=== PATIENT | female | born 1980 | race Caucasian/White ===

== ENCOUNTER 2019-01-14 23:27 | Emergency (ER) | payer OTHER ==
[2019-01-14 23:57] LABS: ABS Basophils 0.1 10^3/ul (0-0.2); ABS Eosinophils 0.3 10^3/ul (0-0.6); ABS Lymphocytes 2.2 10^3/ul (1.0-4.8); ABS Monocytes 0.9 10^3/ul (0-0.8); ABS Neutrophils 8.3 10^3/ul (1.5-7.7); Eosinophil % 2.3 %; Hematocrit 40 % (35-47); Hemoglobin 13.4 g/dL (12.0-16.0); Lymphocyte % 19.1 %; Mean Corpuscular HGB Conc 34 g/dL (31-36); Mean Corpuscular Hemoglobin 28 pg (27-31); Mean Corpuscular Volume 83 fL (80-97); Mean Platelet Volume 6.8 fL (7.4-10.4); Platelet Count 276 10^3/uL (150-450); Red Blood Count 4.74 10^6 /uL (3.70-4.87); Red Cell Distribution Width 13 % (10-15); White Blood Count 11.8 10^3/uL (3.5-10.8)
[2019-01-15 00:06] LABS: Activated Partial Thrombo Time 32.8 seconds (26.0-38.0); INR 1.08 (0.82-1.09)
[2019-01-15 00:25] LABS: Albumin/Globulin Ratio 1.5 (1-3); BUN/Creatinine Ratio 20.3 (8-20); Calcium 9.4 mg/dL (8.6-10.3); EGFR African American 115.2 (>60); EGFR Non-African American 95.2 (>60); Globulin 2.6 g/dL (2-4); Total Bilirubin 0.3 mg/dL (0.2-1.0); Total Protein 6.6 g/dL (6.4-8.9)
--- NOTE | 2019-01-15 02:16 | ED ---
- HPI Summary HPI Summary: Patient is a 38 y/o F presenting to the ED for a chief complaint of vaginal bleeding during . Patient was referred to [facility] by her TRAVELER CHANGER. Patient is present with her . Patient reports having vaginal bleeding that began around 17:00 on 01/13/19. The bleeding was intermittent and resolved for some time, but returned at 19:00 on 01/14/19. She reports seeing some tissue in the blood and abdominal pain described as cramping. She currently complains of fatigue, with the abdominal pain now improved. She has a history of miscarriage in the past and an elective . This is her third . - History of Current Complaint Chief Complaint: EDVaginalBleeding Stated Complaint: VAG BLEEDING PER PT Hx Obtained From: Patient Chief Complaint: Concern for Demise, Pain, Vaginal Bleeding Onset/Duration: Atraumatic, Still Present Timing: Intermittent Severity: Mild Current Severity: Mild Pain Intensity: 2 Location of Pain: Diffuse Character: None Aggravating Factors: Nothing Alleviating Factors: Nothing Associated Signs and Symptoms: Positive: Vaginal Bleeding or Discharge - Allergies/Home Medications Allergies/Adverse Reactions: Allergies Allergy/AdvReac Type Severity Reaction Status Date / Time No Known Allergies Allergy Verified 01/14/19 23:30 PMH/Surg Hx/FS Hx/Imm Hx Previously Healthy: Yes Endocrine/Hematology History: Denies: Hx Diabetes Cardiovascular History: Denies: Hx Hypercholesterolemia, Hx Hypertension Sensory History: Denies: Hx Legally Blind, Hx Deafness Opthamlomology History: Denies: Hx Legally Blind EENT History: Denies: Hx Deafness - Surgical History Surgical History: Yes Surgery Procedure, Year, and Place: D&C Infectious Disease History: No Infectious Disease History: Denies: Traveled Outside the [place] in Last 30 Days - Family History Known Family History: Negative: Cardiac Disease, Diabetes - Social History Occupation: Employed Full-time Lives: With Family Alcohol Use: None Hx Substance Use: No Substance Use Type: Reports: None Hx Tobacco Use: No Smoking Status (MU): Never Smoked Tobacco Review of Systems Positive: Fatigue Positive: Abdominal Pain Positive: other - Positive vaginal bleeding All Other Systems Reviewed And Are Negative: Yes Physical Exam - Summary Physical Exam Summary: Appearance: Well-appearing, Well-nourished, lying in bed comfortable Skin: Warm, dry, no obvious rash Eyes: sclera anicteric, no conjunctival pallor ENT: mucous membranes moist Neck: deferred Respiratory: No signs of respiratory distress Cardiovascular: Appears well perfused, pulses are nml Abdomen: deferred Musculoskeletal: Moving all 4 extremities without obvious discomfort Neurological: Awake and alert, mentation is normal, speech is fluent and appropriate Psychiatric: affect is normal, does not appear anxious or depressed - Physical Exam Triage Information Reviewed: Yes Vital Signs Reviewed: Yes Procedures - Sedation Patient Received Moderate/Deep Sedation with Procedure: No Diagnostics - Vital Signs Vital Signs Temp Pulse Resp BP Pulse Ox 01/15/19 01:41 98.0 F 74 18 104/64 98 01/14/19 23:30 97.5 F 81 18 119/75 98 - Laboratory Lab Results: Lab Results 01/14/19 01/14/19 01/14/19 Range/Units 23:47 23:47 23:47 WBC 11.8 H (3.5-10.8) 10^3/uL RBC 4.74 (3.70-4.87) 10^6 /uL Hgb 13.4 (12.0-16.0) g/dL Hct 40 (35-47) % MCV 83 (80-97) fL MCH 28 (27-31) pg MCHC 34 (31-36) g/dL RDW 13 (10-15) % Plt Count 276 (150-450) 10^3/uL MPV 6.8 L (7.4-10.4) fL Neut % (Auto) 70.2 % Lymph % (Auto) 19.1 % [place] % (Auto) 7.7 % Eos % (Auto) 2.3 % Baso % (Auto) 0.7 % Absolute Neuts (auto) 8.3 H (1.5-7.7) 10^3/ul Absolute Lymphs (auto) 2.2 (1.0-4.8) 10^3/ul Absolute Monos (auto) 0.9 H (0-0.8) 10^3/ul Absolute Eos (auto) 0.3 (0-0.6) 10^3/ul Absolute Basos (auto) 0.1 (0-0.2) 10^3/ul Absolute Nucleated RBC 0.0 10^3/ul Nucleated RBC % 0.0 INR (Anticoag Therapy) 1.08 (0.82-1.09) APTT 32.8 (26.0-38.0) seconds Sodium 136 (135-145) mmol/L Potassium 4.0 (3.5-5.0) mmol/L Chloride 105 (101-111) mmol/L Carbon Dioxide 27 (22-32) mmol/L Anion Gap 4 (2-11) mmol/L BUN 14 (6-24) mg/dL Creatinine 0.69 (0.51-0.95) mg/dL Est GFR ( Amer) 115.2 (>60) Est GFR (Non-Af Amer) 95.2 (>60) BUN/Creatinine Ratio 20.3 H (8-20) Glucose 88 (70-100) mg/dL Lactic Acid (0.5-2.0) mmol/L Calcium 9.4 (8.6-10.3) mg/dL Total Bilirubin 0.30 (0.2-1.0) mg/dL AST 12 L (13-39) U/L ALT 12 (7-52) U/L Alkaline Phosphatase 64 (34-104) U/L Total Protein 6.6 (6.4-8.9) g/dL Albumin 4.0 (3.2-5.2) g/dL Globulin 2.6 (2-4) g/dL Albumin/Globulin Ratio 1.5 (1-3) 01/14/19 Range/Units 23:47 WBC (3.5-10.8) 10^3/uL RBC (3.70-4.87) 10^6 /uL Hgb (12.0-16.0) g/dL Hct (35-47) % MCV (80-97) fL MCH (27-31) pg MCHC (31-36) g/dL RDW (10-15) % Plt Count (150-450) 10^3/uL MPV (7.4-10.4) fL Neut % (Auto) % Lymph % (Auto) % [place] % (Auto) % Eos % (Auto) % Baso % (Auto) % Absolute Neuts (auto) (1.5-7.7) 10^3/ul Absolute Lymphs (auto) (1.0-4.8) 10^3/ul Absolute Monos (auto) (0-0.8) 10^3/ul Absolute Eos (auto) (0-0.6) 10^3/ul Absolute Basos (auto) (0-0.2) 10^3/ul Absolute Nucleated RBC 10^3/ul Nucleated RBC % INR (Anticoag Therapy) (0.82-1.09) APTT (26.0-38.0) seconds Sodium (135-145) mmol/L Potassium (3.5-5.0) mmol/L Chloride (101-111) mmol/L Carbon Dioxide (22-32) mmol/L Anion Gap (2-11) mmol/L BUN (6-24) mg/dL Creatinine (0.51-0.95) mg/dL Est GFR ( Amer) (>60) Est GFR (Non-Af Amer) (>60) BUN/Creatinine Ratio (8-20) Glucose (70-100) mg/dL Lactic Acid 0.7 (0.5-2.0) mmol/L Calcium (8.6-10.3) mg/dL Total Bilirubin (0.2-1.0) mg/dL AST (13-39) U/L ALT (7-52) U/L Alkaline Phosphatase (34-104) U/L Total Protein (6.4-8.9) g/dL Albumin (3.2-5.2) g/dL Globulin (2-4) g/dL Albumin/Globulin Ratio (1-3) Result Diagrams: 01/14/19 23:47 01/14/19 23:47 Lab Statement: Any lab studies that have been ordered have been reviewed, and results considered in the medical decision making process. - Ultrasound Transvaginal US Ultrasound Interpretation Completed By: Radiologist Summary of Ultrasound Findings: Transvaginal US IMPRESSION: Findings consistent with a incomplete . Reviewed by Dr. Ziegler. Course/Dx - Course Course Of Treatment: Patient is a 38 y/o F presenting to the ED for a chief complaint of vaginal bleeding during . Patient was referred to [facility] by her TRAVELER CHANGER. Patient is present with her . Patient reports having vaginal bleeding that began around 17:00 on 01/13/19. The bleeding was intermittent and resolved for some time, but returned at 19:00 on 01/14/19. She reports seeing some tissue in the blood and abdominal pain described as cramping. She currently complains of fatigue, with the abdominal pain now improved. She has a history of miscarriage in the past and an elective . This is her third . On exam, unremarkable findings. Laboratory abnormal findings: WBC 11.8, MPV 6.8, absolute neuts 8.3, absolute monos 0.9, BUN/creatinine ratio 20.3, AST 12. Transvaginal US IMPRESSION: Findings consistent with a incomplete . Patient will be discharged with a diagnosis of incomplete . Follow up with PCP in 2-3 days. - Diagnoses Provider Diagnoses: Incomplete Discharge ED - Sign-Out/Discharge Documenting (check all that apply): Patient Departure - Discharge - Discharge Plan Condition: Good Disposition: HOME Patient Education Materials: Miscarriage (ED) Referrals: [facility] [Outside] Additional Instructions: Contact your OB in the morning for followup instructions. As long as the pain and bleeding are not too bad you can stay at home and rest. I'm very sorry for your loss. - Billing Disposition and Condition Condition: GOOD Disposition: Home - Attestation Statements Document Initiated by Jovanna: Yes Documenting Scribe: Makayla Hawk Provider For Whom Jovanna is Documenting (Include Credential): Silas Ziegler MD Scribe Attestation: IMakayla, scribed for Silas Ziegler MD on 01/15/19 at 0621. Scribe Documentation Reviewed: Yes Provider Attestation: The documentation as recorded by the Makayla bingham accurately reflects the service I personally performed and the decisions made by me, Silas Ziegler MD Status of Scribe Document: Viewed
[2019-01-15 02:24] VITALS: BP 105/67
== END 2019-01-15 02:24 | disposition home or self-care (01) ==
LOC: ED 23:27
DX: O03.4 Incomplete spontaneous abortion without complication (principal); N93.9 Abnormal uterine and vaginal bleeding, unspecified; R53.83 Other fatigue; R10.9 Unspecified abdominal pain
CPT/HCPCS: 36415; 76830; 80053; 83605; 85025; 85610; 85730; 99282